=== PATIENT | male | born 1970 | race African-American/Black ===

== ENCOUNTER 2016-12-16 20:05 | Emergency (ER) | payer OTHER ==
[~2016-12-16] VITALS: Ht 182.9 cm; Wt 95.3 kg
[2016-12-16 20:10] VITALS: BP 120/69
[2016-12-16] MEDS ORDERED: IBUP800T19 PO (20:20)
[2016-12-16] MEDS ORDERED: oxyCODONE/APAP 5/325 1 TAB TABLET PO ONE (21:00)
[2016-12-16] MEDS ORDERED: START PACK - traMADol 1 STARTPACK TABLET PO ONE ×2 (21:14→21:30)
--- NOTE | 2016-12-16 22:06 | ED.ADGEN ---
Past History Past Medical History: No Pertinent History Past Surgical History: Other Alcohol Use: Occasionally Drug Use: None Adult General Chief Complaint Chief Complaint Right hand injury [facility] HPI Patient is a 46-year-old right handed -[place] male presents with right head injury. Patient fell with running and landed on the side of his outstretched hand. Patient with abrasion to pedal aspect of distal right small finger. Patient with tenderness and swelling to fourth and fifth MCP joints without obvious deformity. Alignment intact. Patient with small abrasion to home without obvious foreign body. No other injury or complaint. Review of Systems Review of Systems ROS as per HPI Current Medications Current Medications Current Medications Medications (Trade) Dose Ordered Sig/Daniel Start Time Stop Time Status Last Admin Dose Admin Oxycodone/ Acetaminophen (Percocet 5/325) 1 tab 1X ONCE 12/16/16 21:00 12/16/16 21:01 DC 12/16/16 21:00 1 TAB Tramadol HCl (Starter Pack - Ultram) 1 startpack STK-MED ONCE 12/16/16 21:14 12/16/16 21:15 DC Allergies Allergies Allergies Coded Allergies Type Severity Reaction Last Updated Verified No Known Drug Allergies 12/16/16 No Physical Exam Physical Exam Constitutional: Well developed, well nourished, no acute distress, non-toxic appearance. [] HENT: Normocephalic, atraumatic, bilateral external ears normal, oropharynx moist, no oral exudates, nose normal. [] Eyes: PERRLA, EOMI, conjunctiva normal, no discharge. [] Neck: Normal range of motion, no tenderness, supple, no stridor. [] Cardiovascular:Heart rate regular rhythm, no murmur [] Lungs & Thorax: Bilateral breath sounds clear to auscultation [] Abdomen: Bowel sounds normal, soft, no tenderness, no masses, no pulsatile masses. [] Skin: Warm, dry, no erythema, no rash. [] Back: No tenderness, no CVA tenderness. [] Extremities: Right hand, tenderness swelling over fourth and fifth MCP joints, with pain on range of motion, abrasion to medial surface of distal fifth digit, small abrasion to hypo-thenar region of palm. Wounds are clean, bleeding is controlled. Neurologic: Alert and oriented X 3, normal motor function, normal sensory function, no focal deficits noted. [] Psychologic: Affect normal, judgement normal, mood normal. [] Current Patient Data Vital Signs Vital Signs Date Time Temp Pulse Resp B/P (MAP) Pulse Ox O2 Delivery O2 Flow Rate FiO2 12/16/16 20:10 97.7 58 16 97 Room Air EKG EKG [] Radiology/Procedures Radiology/Procedures [Right hand XR: Possible proximal phalanx chip fractures of evolving fourth and fifth joints.] Course & Med Decision Making Course & Med Decision Making Pertinent Labs and Imaging studies reviewed. (See chart for details) [Pain addressed. Wound clean, patient placed in ulnar gutter splint with instructions to follow-up with post PCP and/or orthopedic physicians] Final Impression Final Impression 1. Right fourth and fifth finger fracture 2. Right hand abrasion Problems: Dragon Disclaimer Dragon Disclaimer This electronic medical record was generated, in whole or in part, using a voice recognition dictation system. MATI MCKEON DO December 16, 2016 22:05
--- NOTE | 2016-12-17 08:11 | RAD ---
EXAM: Right hand, 3 views. HISTORY: Fall. COMPARISON: None. FINDINGS: Frontal, lateral and oblique views of the right hand are obtained. There is no fracture, dislocation or subluxation. There is a tiny lesion arising from the soft tissues of the tip of the third phalanx. IMPRESSION: 1. No acute osseous finding. 2. Tiny lesion arising from the soft tissues at the tip of the third phalanx. Correlate with visual inspection.
== END 2016-12-16 21:18 | disposition home or self-care (01) ==
LOC: ER 20:05
DX: S62.614A Displaced fracture of proximal phalanx of right ring finger, initial encounter for closed fracture (principal); S62.616A Displaced fracture of proximal phalanx of right little finger, initial encounter for closed fracture; W19.XXXA Unspecified fall, initial encounter; Y93.02 Activity, running; Y99.8 Other external cause status; Y92.89 Other specified places as the place of occurrence of the external cause
CPT/HCPCS: 29125; 73130; 99284-25

== ENCOUNTER → 2017-10-23 | Outpatient (CLI) | payer OTHER ==
[~2017-10-23] MED LIST: BACL10TA PO; BUPIVACAINE MPF 0.25% 10 ML VIAL. ONE; FEXO180T81 PO; FLUT9.9S NS; IBUP800T19 PO; LIDOCAINE 1% PF 30 ML VIAL. ONE
== END | disposition home or self-care (01) ==
LOC: SURG 09:00
PROVIDERS: ATTEND Anesthesiology
DX: M47.816 Spondylosis without myelopathy or radiculopathy, lumbar region (principal); J45.909 Unspecified asthma, uncomplicated; Z72.89 Other problems related to lifestyle; Z79.899 Other long term (current) drug therapy
CPT/HCPCS: 64493; 64494; J2001; J3490

== ENCOUNTER → 2017-11-02 | Outpatient (CLI) | payer OTHER ==
[~2017-11-02] MED LIST changes: -BUPIVACAINE MPF 0.25% 10 ML VIAL. ONE; +HYDR-971 PO; -LIDOCAINE 1% PF 30 ML VIAL. ONE
== END | disposition home or self-care (01) ==
LOC: SURG 13:30
PROVIDERS: ATTEND Anesthesiology Pain Medicine
DX: M47.816 Spondylosis without myelopathy or radiculopathy, lumbar region (principal); J45.909 Unspecified asthma, uncomplicated; Z79.899 Other long term (current) drug therapy; Z72.89 Other problems related to lifestyle
CPT/HCPCS: 99213

== ENCOUNTER → 2017-11-13 | Outpatient (CLI) | payer OTHER ==
[~2017-11-13] MED LIST changes: +BUPIVACAINE MPF 0.25% 10 ML VIAL. ONE; +DEXAMETHASONE SOD PHOS 4 MG/ML VIAL ONE; +HYDROcodone/APAP 5/325MG 1 TAB TABLET PO ONE; +IV RINGERS SOLUTION,LACTATED 1,000 ML IV SCH; +LIDOCAINE (700MG/PATCH) PATCH. TD ONE; +LIDOCAINE 1% PF 30 ML VIAL. ONE; +MIDAZOLAM HCL PF 2 MG/2 ML VIAL. ONE
[2017-11-13 10:15] VITALS: BP 130/73
== END | disposition home or self-care (01) ==
LOC: SURG 07:34
PROVIDERS: ATTEND Anesthesiology
DX: M47.816 Spondylosis without myelopathy or radiculopathy, lumbar region (principal); J45.909 Unspecified asthma, uncomplicated; Z72.89 Other problems related to lifestyle; Z98.890 Other specified postprocedural states
CPT/HCPCS: 64635; 64636; 99152; J1100; J2001; J2250; J3010; J3490; J7120